=== PATIENT | female | born 1995 | race Caucasian/White ===

== ENCOUNTER 2017-10-22 14:46 | Emergency (ER) | payer MEDICAID ==
[~2017-10-22] VITALS: Ht 154.9 cm; Wt 56.7 kg
[2017-10-22 15:02] VITALS: Ht 154.9 cm; Wt 56.7 kg
[2017-10-22 16:17] VITALS: BP 127/94
== END 2017-10-22 16:17 | disposition home or self-care (01) ==
LOC: ED 14:46
DX: S61.304A Unspecified open wound of right ring finger with damage to nail, initial encounter (principal); X58.XXXA Exposure to other specified factors, initial encounter; Y93.89 Activity, other specified; Y92.89 Other specified places as the place of occurrence of the external cause; Y99.8 Other external cause status

== ENCOUNTER 2017-11-23 02:36 | Emergency (ER) | payer OTHER ==
[~2017-11-23] VITALS: Ht 154.9 cm; Wt 54.4 kg
[2017-11-23 02:44] VITALS: Ht 154.9 cm; Wt 54.4 kg
[2017-11-23 03:21] VITALS: BP 137/85
== END 2017-11-23 03:17 | disposition other institution (70) ==
LOC: ED 02:36
DX: Z02.89 Encounter for other administrative examinations (principal)

== ENCOUNTER 2018-01-19 05:48 | Emergency (ER) | payer MEDICAID ==
[~2018-01-19] VITALS: Ht 154.9 cm; Wt 54.0 kg
[2018-01-19 05:58] VITALS: Ht 154.9 cm; Wt 54.0 kg
[2018-01-19 08:10] VITALS: BP 112/68
== END 2018-01-19 08:10 | disposition home or self-care (01) ==
LOC: ED 05:48
DX: S01.81XA Laceration without foreign body of other part of head, initial encounter (principal); X58.XXXA Exposure to other specified factors, initial encounter; Y93.89 Activity, other specified; Y92.89 Other specified places as the place of occurrence of the external cause; Y99.8 Other external cause status
CPT/HCPCS: J2001

== ENCOUNTER 2018-01-28 15:16 | Emergency (ER) | payer MEDICAID ==
[~2018-01-28] VITALS: Ht 154.9 cm; Wt 54.4 kg
[2018-01-28 15:32] VITALS: BP 119/76; Ht 154.9 cm; Wt 54.4 kg
== END 2018-01-28 16:37 | disposition home or self-care (01) ==
LOC: ED 15:16
DX: S01.81XD Laceration without foreign body of other part of head, subsequent encounter (principal); W01.0XXD Fall on same level from slipping, tripping and stumbling without subsequent striking against object, subsequent encounter

== ENCOUNTER 2020-09-12 00:34 | Emergency (ER) | payer OTHER ==
[~2020-09-12] VITALS: Ht 154.9 cm; Wt 54.4 kg
[2020-09-12 00:35] VITALS: Ht 154.9 cm; Wt 54.4 kg
[2020-09-12 01:31] VITALS: BP 121/75
== END 2020-09-12 01:31 ==
LOC: ED 00:34
DX: S60.512A Abrasion of left hand, initial encounter (principal); Z02.79 Encounter for issue of other medical certificate; X58.XXXA Exposure to other specified factors, initial encounter; Y93.89 Activity, other specified; Y92.89 Other specified places as the place of occurrence of the external cause; Y99.8 Other external cause status

== ENCOUNTER 2020-09-12 00:34 | Emergency (ER) | payer OTHER | END 2020-09-12 01:31 | LOC: ED 00:34 | DX: Z02.89 Encounter for other administrative examinations (principal) ==